=== PATIENT | male | born 1980 | race Caucasian/White ===

== ENCOUNTER 2019-08-15 16:37 | Emergency (ER) | payer OTHER ==
[2019-08-15 16:54] VITALS: BP 136/94; PULSE 105; TEMP 98.5; BMI 23.7
[2019-08-15] MEDS ORDERED: ALPRAZolam 0.25 MG TABLET PO ONE (17:32)
[2019-08-15] MEDS ORDERED: ALPRAZolam 0.25 MG TABLET ONE (17:35)
[2019-08-15 18:26] LABS: BASO % 1.7 % (0-2.0); EOS % 0.1 % (0-4.5); HEMATOCRIT 51.2 % (35.4-49); HEMOGLOBIN 17.3 GM/dl (11.7-16.9); LYMPH % 21.3 % (8-40); MCH 31.7 pg (25.7-33.7); MCHC 33.8 g/dl (32.0-35.9); MEAN CELL VOLUME 93.8 fl (80-96); MEAN PLT VOLUME 8.7 fl (7.5-11.1); MONO % 8.6 % (3.8-10.2); NEUT % 68.3 % (42.8-82.8); PLATELET COUNT 275 K/MM3 (134-434); RBC 5.46 M/mm3 (4.00-5.60); RDW 11.8 % (11.9-15.9); WHITE BLOOD COUNT 10.3 K/mm3 (4.0-10.8)
--- NOTE | 2019-08-15 18:27 | PDOC ---
Documentation entered by Tarci Rao SCRIBE, acting as scribe for Amanuel Barrios MD. Amanuel Barrios MD: This documentation has been prepared by the Maira jules Xhesika, SCRIBE, under my direction and personally reviewed by me in its entirety. I confirm that the documentation accurately reflects all work, treatment, procedures, and medical decision making performed by me. History of Present Illness - General Chief Complaint: Respiratory Stated Complaint: SOB FOR 6 DAYS DRY COUGH History Source: Patient Exam Limitations: No Limitations - History of Present Illness Initial Comments: 08/15/19 17:32 The patient is a 38 year old male with a significant PMH of herniated disks who presents to the emergency department for 6 days of SOB, palpitations. Pt describes his symptoms as inability to get air into his body and he feels like his heart is beating really fast. The patient states he was seen at [facility] immediately after the onset of his symptoms, had a normal EKG and cxr and was told he probably had a flu/virus. Pt states symptoms were still present after that ER visit, so he went to urgent care and was told it was nothing. Pt states he missed his flight to [place] on Thursday08/13/18 with his kids because of his symptoms. Pt reports feeling nervous and anxious since then. The patient denies chest pain, headache and dizziness. Denies fever, cough, vomiting, diarrhea and constipation. Denies dysuria, frequency, urgency and hematuria. He denies any leg pain, calf pain or swelling. no recent surgical history. Allergies: NKDA No PMD Past History - Past Medical History Allergies/Adverse Reactions: Allergies Allergy/AdvReac Type Severity Reaction Status Date / Time No Known Allergies Allergy Unverified 08/15/19 16:45 Home Medications: Ambulatory Orders NK [No Known Home Medication] 08/15/19 Review of Systems - Review of Systems Able to Perform ROS?: Yes Comments:: 08/15/19 17:33 GENERAL/CONSTITUTIONAL: No fever. No weakness. +chills. +sweats HEAD, EYES, EARS, NOSE AND THROAT: No change in vision. No ear pain or discharge. No sore throat. CARDIOVASCULAR: No chest pain. + shortness of breath. +palpitations RESPIRATORY: No cough, wheezing, or hemoptysis. GASTROINTESTINAL: No vomiting, diarrhea or constipation. +nausea. GENITOURINARY: No dysuria, frequency, or change in urination. MUSCULOSKELETAL: No joint or muscle swelling or pain. No neck or back pain. SKIN: No rash NEUROLOGIC: No headache, vertigo, loss of consciousness, or change in strength/ sensation. ENDOCRINE: No increased thirst. No abnormal weight change. HEMATOLOGIC/LYMPHATIC: No anemia, easy bleeding, or history of blood clots. ALLERGIC/IMMUNOLOGIC: No hives or skin allergy. *Physical Exam - Vital Signs Last Vital Signs Temp Pulse Resp BP Pulse Ox 98.5 F 105 H 18 136/94 99 08/15/19 16:38 08/15/19 16:38 08/15/19 16:38 08/15/19 16:38 08/15/19 16:38 - Physical Exam 08/15/19 18:18 GENERAL: The patient is awake, alert, and fully oriented, Nontoxic - in no acute distress. HEAD: Normocephalic, atraumatic. EYES: extraocular movements intact, sclera anicteric, conjunctiva clear. ENT: Normal voice, Dry mucous membranes. NECK: Normal range of motion, supple LUNGS: Breath sounds equal, clear to auscultation bilaterally. No wheezes, no rhonchi, no rales. HEART: slightly tachycardic, normal S1 and S2 without murmur, rub or gallop. ABDOMEN: Soft, nontender, No guarding, no rebound. No CVA tenderness EXTREMITIES: Normal range of motion, no edema. Negative homans NEUROLOGICAL: No facial assymetry, Normal speech, PSYCH: anxious appearing SKIN: Warm, Dry, normal turgor, Heart Score/ECG Review - ECG Impressions Comment:: 08/15/19 18:19 Twelve-lead EKG was performed and reviewed by me. There is normal sinus rhythm with a normal rate. Rate of 61 Right bundle branch block ED Treatment Course - LABORATORY CBC & Chemistry Diagram: 08/15/19 18:05 08/15/19 18:05 Medical Decision Making - Medical Decision Making 08/15/19 17:24 38y M presents with sob/palpitations For the past week, Patient notes sudden onset of "inability to take a deep breath" associated with palpitations that has been persistent. Patient also endorses a mild dry cough denies any hemoptysis, leg swelling, calf pain, chest pain, dyspnea on exertion. No prior history of DVTs or PEs denies any use of exogenous steroids, recent surgeries or injuries recent travel to [place] 1 month ago, but no other recent travel. Differential includes possible anxiety, metabolic derangements, anemia, consider also pulmonary embolism will obtain a screening d-dimer chest x-ray EKG and C BC and CMP Also give the patient a Xanax 08/15/19 19:20 pts EKG ntoed for a RBBB - pt unclear if he had this in the past - will call [facility] for preior EKG results Was at [facility] on 08/13, had EKG with RBBB 08/15/19 19:42 Patient's d-dimer is negative the patient's heart rate is improved it is 61 on his current EKG. Patient also stated is feeling improved I will discharge patient follow-up with his primary care doctor, return precautions were discussed I discussed the physical exam findings, ancillary test results and final diagnoses with the patient. I answered all of the patient's questions. The patient was satisfied with the care received and felt comfortable with the discharge plan and treatment plan. The patient will call their primary care physician within 24 hours to arrange follow-up and will return to the Emergency Department with any new, persistent or worsening symptoms. Discharge - Discharge Information Problems reviewed: Yes Clinical Impression/Diagnosis: Dehydration, Palpitations Condition: Improved Disposition: HOME - Admission No - Follow up/Referral Referrals: [facility] [place] [Provider Group] - Patient Discharge Instructions Patient Printed Discharge Instructions: DI for Palpitations Additional Instructions: Return to the emergency department immediately with ANY new, persistent or worsening symptoms. Make sreu to stay well hydrated You MUST call and follow up with your doctor in 3-4 days for further evaluation of your symptoms. Results were discussed with you. Please make sure your doctor reviews the results of your emergency evaluation. Your Emergency Department visit is not complete without a follow up with your doctor. Print Language: MOLDOVAN - Post Discharge Activity
[2019-08-15 18:31] LABS: ALBUMIN 5.4 g/dl (3.4-5.0); BILIRUBIN,TOTAL 2.9 mg/dl (0.2-1); CALCIUM 10.4 mg/dl (8.5-10); POTASSIUM 4.2 mmol/L (3.5-5.1); TOT PROT 9.3 g/dl (6.4-8.2)
--- NOTE | 2019-08-16 09:22 | EKG ---
Test Reason : Blood Pressure : / mmHG Vent. Rate : 061 BPM Atrial Rate : 061 BPM P-R Int : 150 ms QRS Dur : 158 ms QT Int : 470 ms P-R-T Axes : 067 090 038 degrees QTc Int : 473 ms SINUS RHYTHM WITH MARKED SINUS ARRHYTHMIA RIGHT BUNDLE BRANCH BLOCK MINIMAL VOLTAGE CRITERIA FOR LVH, MAY BE NORMAL VARIANT ABNORMAL ECG NO PREVIOUS ECGS AVAILABLE Confirmed by Joey Guzman MD ([id number]) on 08/16/2019 9:21:48 AM Referred By: Confirmed By:Joey Guzman MD
== END 2019-08-15 19:46 | disposition home or self-care (01) ==
LOC: FER 16:37
DX: E86.0 Dehydration (principal); R00.2 Palpitations
CPT/HCPCS: 36415; 71046-TC-FY; 80053; 82550; 84484; 85025; 85379; 93005; 99285-25

== ENCOUNTER 2019-08-16 23:42 | Emergency (ER) | payer OTHER ==
[2019-08-16 23:47] VITALS: TEMP 98.4; BMI 23.0
--- NOTE | 2019-08-16 23:53 | PDOC ---
History of Present Illness - General Chief Complaint: Rash Stated Complaint: RASH TO LEFT SIDE OF BACK Time Seen by Provider: 08/16/19 23:43 - History of Present Illness Initial Comments: This 38-year-old man, who was seen here yesterday with 6-day history of rapid heartbeat and sensation of not being able to breathe, presents with mildly tender ecchymotic rash of the left upper back that he noted tonight while getting ready to go to bed. he does not remember injuring himself in the area. 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 He describes very active movement of his arms, upper chest and upper back while playing the drums. He denies any easy bruising/easy bleeding at any time. Patient is also describing a mild left-sided headache currently. Patient was seen earlier today by a top hat body maker and was started on a trial of low-dose propranolol for his tachycardia. No other new medications started except for alprazolam (0.25 mg), with last dose at 5 PM today. He states that his shortness of breath has improved today and only felt rapid heartbeat when he noted the new rash and became anxious. Patient has scheduled appointment with a therapist to be evaluated for anxiety/ panic disorder tomorrow afternoon Meds: Propranolol/alprazolam Daily marijuana use No known allergies Past History - Past Medical History Allergies/Adverse Reactions: Allergies Allergy/AdvReac Type Severity Reaction Status Date / Time No Known Allergies Allergy Unverified 08/15/19 16:45 Home Medications: Ambulatory Orders Alprazolam [Xanax] 0.25 mg PO Q12H PRN #4 tablet MDD 2 08/15/19 COPD: No - Psycho Social/Smoking Cessation Hx Smoking History: Never smoked Have you smoked in the past 12 months: No Information on smoking cessation initiated: No Hx Alcohol Use: No Drug/Substance Use Hx: Yes (MARIJUANA DAILY) Review of Systems - Review of Systems Able to Perform ROS?: Yes Comments:: 12 point review of systems is negative except for what is noted in the history of present illness *Physical Exam - Vital Signs Last Vital Signs Temp Pulse Resp BP Pulse Ox 98.4 F 84 16 160/106 H 100 08/16/19 23:44 08/16/19 23:44 08/16/19 23:44 08/16/19 23:44 08/16/19 23:44 - Physical Exam GENERAL: Adult male, mildly anxious but in no acute distress HEAD: Very mild tenderness left parietal area without edema/palpable masses or skin break EYES: PERRLA, EOMI, sclera anicteric, conjunctiva clear. NECK: Normal range of motion, supple without lymphadenopathy, JVD, or masses. LUNGS: Breath sounds equal, clear to auscultation bilaterally. No wheezes, and no crackles. HEART:Regular rate and rhythm, normal S1 and S2 without murmur, rub or gallop. NEUROLOGICAL: Cranial nerves II through XII grossly intact. Normal speech. No focal neurological deficits. SKIN: 5 cm x 2 cm slightly edematous, mildly tender ecchymotic area with overlying nonblanching petechial rash left posterior axillary fold; no other rash evident Medical Decision Making - Medical Decision Making This 38-year-old man with approximately 1 week of rapid heartbeat and sensation of shortness of breath was seen here yesterday and had full work-up including CBC/chemistry profile/troponin level/d-dimer/twelve-lead EKG and chest x-ray. D-dimer and troponin levels were not elevated. EKG had RBBB (seen in earlier EKG) Remainder of the laboratory evaluation notable only for prerenal azotemia consistent with dehydration Patient presents tonight because of area of ecchymosis of the left upper back ( about at the level posterior axillary fold) without recall of direct trauma to the area. No other rash present without history of easy bruising/easy bleeding.. Platelet level was normal yesterday. Patient's blood pressure was still quite elevated on presentation tonight ( although heart rate was decreased from yesterday's values). Pulse oximetry is still excellent on room air. Blood pressure had decreased to 134/91 prior to discharge Since skin lesion is localized without evidence of any other rash and the patient describes very active limb/upper back movements earlier today when he was playing drums, likely that this is a traumatic ecchymosis. Patient was seen by top hat body maker today but he has been advised to follow up also with an .net programmer. He received referral information [facility] yesterday: He should call tomorrow to arrange follow-up appointment He has follow-up appointment with therapist already arranged tomorrow; since he admits being persistently anxious tonight, additional dose of alprazolam 0.25 mg given. He should return to the ER if he has persistent palpitations or severe shortness of breath Discharge - Discharge Information Problems reviewed: Yes Clinical Impression/Diagnosis: Superficial bruising of chest wall Qualifiers: Encounter type: initial encounter Laterality: left Qualified Code(s): S20.212A - Contusion of left front wall of thorax, initial encounter Condition: Stable Disposition: HOME - Follow up/Referral - Patient Discharge Instructions Patient Printed Discharge Instructions: DI for Contusion Additional Instructions: Follow-up with therapist tomorrow as scheduled Call [facility] [place] tomorrow to arrange follow-up appointment (info provided yesterday) Return to ER if you have prolonged chest pain, shortness of breath, palpitations - Post Discharge Activity
[2019-08-17] MEDS ORDERED: ALPRAZolam 0.25 MG TABLET PO ONE (00:13)
[2019-08-17] MEDS ORDERED: ALPRAZolam 0.25 MG TABLET ONE (00:14)
[2019-08-17 00:19] VITALS: PULSE 74
[2019-08-17 00:50] VITALS: BP 134/91
== END 2019-08-17 00:52 | disposition home or self-care (01) ==
LOC: FER 23:42
DX: S20.212A Contusion of left front wall of thorax, initial encounter (principal); X58.XXXA Exposure to other specified factors, initial encounter; Y93.89 Activity, other specified; Y92.89 Other specified places as the place of occurrence of the external cause
CPT/HCPCS: 99283-25